=== PATIENT | female | born 1995 | race American Indian/Alaskan Native ===

== ENCOUNTER 2018-10-04 10:06 | Emergency (ER) | payer SELFPAY ==
[2018-10-04 10:11] VITALS: BP 108/66
[2018-10-04] MEDS ORDERED: NORCO PO ONE (11:03)
--- NOTE | 2018-10-04 12:42 | Emergency Department Report ---
ED ENT HPI - General Chief complaint: Sore Throat Stated complaint: SORE THROAT Time Seen by Provider: 10/04/18 10:44 Source: patient Mode of arrival: Ambulatory Limitations: No Limitations - History of Present Illness Initial comments: Patient is a 23-year-old Citizen Of [place] female who is presenting with 3 days of sore throat and fever. Patient also has had some mild backache as well as a cough. Patient states pain is 10 out of 10 with swallowing. He denies any neck stiffness. Worsens with: swallowing Associated Symptoms: fever, cough, pain with swallowing, sore throat. denies: toothache, tinnitus - Related Data Previous Rx's Medication Instructions Recorded Last Taken Type Azithromycin [Zithromax Z-WES] 250 mg PO DAILY #6 tablet 10/04/18 Unknown Rx predniSONE [Deltasone] 20 mg PO QDAY #5 tab 10/04/18 Unknown Rx traMADol [Ultram] 50 mg PO Q6HR PRN #12 tablet 10/04/18 Unknown Rx Allergies Allergy/AdvReac Type Severity Reaction Status Date / Time No Known Allergies Allergy Unverified 10/04/18 11:22 ED Dental HPI - General Chief complaint: Sore Throat Stated complaint: SORE THROAT Time Seen by Provider: 10/04/18 10:44 Source: patient Mode of arrival: Ambulatory Limitations: No Limitations - Related Data Previous Rx's Medication Instructions Recorded Last Taken Type Azithromycin [Zithromax Z-WES] 250 mg PO DAILY #6 tablet 10/04/18 Unknown Rx predniSONE [Deltasone] 20 mg PO QDAY #5 tab 10/04/18 Unknown Rx traMADol [Ultram] 50 mg PO Q6HR PRN #12 tablet 10/04/18 Unknown Rx Allergies Allergy/AdvReac Type Severity Reaction Status Date / Time No Known Allergies Allergy Unverified 10/04/18 11:22 ED Review of Systems ROS: Stated complaint: SORE THROAT Other details as noted in HPI Comment: All other systems reviewed and negative ED Past Medical Hx - Past Medical History Previous Medical History?: No - Surgical History Hx Appendectomy: No - Social History Smoking Status: Never Smoker Substance Use Type: None - Medications Home Medications: Home Medications Medication Instructions Recorded Confirmed Last Taken Type Azithromycin [Zithromax Z-WES] 250 mg PO DAILY #6 tablet 10/04/18 Unknown Rx predniSONE [Deltasone] 20 mg PO QDAY #5 tab 10/04/18 Unknown Rx traMADol [Ultram] 50 mg PO Q6HR PRN #12 tablet 10/04/18 Unknown Rx ED Physical Exam - General Limitations: No Limitations General appearance: alert, in no apparent distress - Head Head exam: Present: atraumatic, normocephalic - Eye Eye exam: Present: normal appearance - ENT ENT exam: Present: mucous membranes moist - Expanded ENT Exam Expanded Mouth exam: Present: tongue normal. Absent: tongue elevation Throat exam: Positive: tonsillar erythema, tonsillomegaly. Negative: tonsillar exudate - Neck Neck exam: Present: normal inspection, lymphadenopathy (ant cerv ) - Respiratory Respiratory exam: Present: normal lung sounds bilaterally. Absent: respiratory distress, wheezes, rales, rhonchi - Cardiovascular Cardiovascular Exam: Present: regular rate, normal rhythm. Absent: systolic murmur, diastolic murmur, rubs, gallop - GI/Abdominal GI/Abdominal exam: Present: soft, normal bowel sounds. Absent: distended, tenderness, guarding, rebound - Extremities Exam Extremities exam: Present: normal inspection - Back Exam Back exam: Present: normal inspection - Neurological Exam Neurological exam: Present: alert, oriented X3 - Psychiatric Psychiatric exam: Present: normal affect, normal mood - Skin Skin exam: Present: warm, dry, intact, normal color. Absent: rash ED Course Vital Signs 10/04/18 10/04/18 10:10 11:22 Temperature 97.8 F Pulse Rate 84 Respiratory 16 16 Rate Blood Pressure 108/66 O2 Sat by Pulse 100 Oximetry ED Medical Decision Making - Lab Data Lab Results 10/04/18 Range/Units 11:50 Group A Strep Rapid Negative (Negative) - Medical Decision Making Strep test was negative. A throat culture is been sent. Patient to be discrete home with medications for symptomatic relief. Critical care attestation.: If time is entered above; I have spent that time in minutes in the direct care of this critically ill patient, excluding procedure time. ED Disposition Clinical Impression: Acute tonsillitis Qualifiers: Pharyngitis/tonsillitis etiology: unspecified etiology Qualified Code(s): J03.90 - Acute tonsillitis, unspecified Disposition: - TO HOME OR SELFCARE Is pt being admited?: No Does the pt Need Aspirin: No Condition: Stable Instructions: Tonsillitis (ED) Referrals: NEERAJ ISAACS MD [Primary Care Provider] - 3-5 Days Time of Disposition: 12:41
== END 2018-10-04 12:54 | disposition home or self-care (01) ==
LOC: ED 10:06
DX: J03.90 Acute tonsillitis, unspecified (principal)
CPT/HCPCS: 87116; 87430

== ENCOUNTER 2018-11-23 14:50 | Emergency (ER) | payer OTHER ==
[2018-11-23 14:57] VITALS: BP 100/68
--- NOTE | 2018-11-23 14:58 | Event Note ---
ED Screening Note Date of service: 11/23/18 Time: 14:55 ED Screening Note: 23 y o presents with generalized body aches x 3 am today This initial assessment/diagnostic orders/clinical plan/treatment(s) is/are subject to change based on patients health status, clinical progression and re-assessment by fellow clinical providers in the ED. Further treatment and workup at subsequent clinical providers discretion. Patient/guardian urged not to elope from the ED as their condition may be serious if not clinically assessed and managed. Initial orders include: ua,upt, cbc,bmp
[2018-11-23 15:12] LABS: Hematocrit 43.9 % (30.3-42.9); Hemoglobin 15.2 gm/dl (10.1-14.3); Mean Corpuscular HGB Conc 35 % (30-34); Mean Corpuscular Volume 89 fl (79-97); Platelet Count 238 K/mm3 (140-440); Red Blood Count 4.91 M/mm3 (3.65-5.03)
[2018-11-23 15:32] LABS: BUN/Creatinine Ratio 15; Blood Urea Nitrogen 9 mg/dL (7-17); Calcium 9.4 mg/dL (8.4-10.2); Hemolysis Index 7
[2018-11-23 16:26] LABS: Bilirubin,Urine NEG (Negative); Blood,Urine NEG (Negative); Color,Urine Yellow (Yellow); Mucus,Urine FEW /HPF; Protein,Urine <15 mg/dL mg/dL (Negative); Urobilinogen,Urine < 2.0 mg/dL (<2.0)
[2018-11-23 16:30] LABS: HCG Qualitative,Urine Negative (Negative)
[2018-11-23 16:54] LABS: Total Cells Counted 100
[2018-11-23 16:55] LABS: Basophils % (Manual) 0 % (0.0-1.8); Eosinophils % (Manual) 0 % (0.0-4.3); Ovalocytes Few
--- NOTE | 2018-11-23 17:59 | Emergency Department Report ---
ED General Adult HPI - General Chief complaint: Fever Stated complaint: BODY PAIN Time Seen by Provider: 11/23/18 14:54 Source: patient Mode of arrival: Ambulatory Limitations: No Limitations - History of Present Illness Initial comments: 23 yo F pt states that she has bodyaches with a fever that started earlier today. -: This morning Location: head, back, abdomen Radiation: non-radiation Severity scale (0 -10): 10 Quality: constant Consistency: constant Improves with: none Worsens with: none Associated Symptoms: denies other symptoms Treatments Prior to Arrival: none - Related Data Previous Rx's Medication Instructions Recorded Last Taken Type Azithromycin [Zithromax Z-WES] 250 mg PO DAILY #6 tablet 10/04/18 Unknown Rx predniSONE [Deltasone] 20 mg PO QDAY #5 tab 10/04/18 Unknown Rx traMADol [Ultram] 50 mg PO Q6HR PRN #12 tablet 10/04/18 Unknown Rx Allergies Allergy/AdvReac Type Severity Reaction Status Date / Time No Known Allergies Allergy Verified 11/23/18 14:51 ED Review of Systems ROS: Stated complaint: BODY PAIN Other details as noted in HPI Constitutional: see HPI Eyes: denies: eye pain, eye discharge, vision change ENT: denies: ear pain, throat pain Respiratory: denies: cough, shortness of breath, wheezing Cardiovascular: denies: chest pain, palpitations Endocrine: no symptoms reported Gastrointestinal: denies: abdominal pain, nausea, diarrhea Genitourinary: denies: urgency, dysuria, discharge Musculoskeletal: denies: back pain, joint swelling, arthralgia Skin: denies: rash, lesions Neurological: denies: headache, weakness, paresthesias Psychiatric: denies: anxiety, depression Hematological/Lymphatic: denies: easy bleeding, easy bruising ED Past Medical Hx - Past Medical History Previous Medical History?: No - Surgical History Past Surgical History?: No Hx Appendectomy: No - Social History Smoking Status: Never Smoker Substance Use Type: None - Medications Home Medications: Home Medications Medication Instructions Recorded Confirmed Last Taken Type Azithromycin [Zithromax Z-WES] 250 mg PO DAILY #6 tablet 10/04/18 Unknown Rx predniSONE [Deltasone] 20 mg PO QDAY #5 tab 10/04/18 Unknown Rx traMADol [Ultram] 50 mg PO Q6HR PRN #12 tablet 10/04/18 Unknown Rx ED Physical Exam - General Limitations: No Limitations General appearance: alert, other (appears fatigued) - Head Head exam: Present: atraumatic, normocephalic - Eye Eye exam: Present: normal appearance - ENT ENT exam: Present: mucous membranes moist - Neck Neck exam: Present: normal inspection - Respiratory Respiratory exam: Present: normal lung sounds bilaterally. Absent: respiratory distress - Cardiovascular Cardiovascular Exam: Present: regular rate, normal rhythm. Absent: systolic murmur, diastolic murmur, rubs, gallop - GI/Abdominal GI/Abdominal exam: Present: soft, normal bowel sounds - Extremities Exam Extremities exam: Present: normal inspection - Back Exam Back exam: Present: normal inspection - Neurological Exam Neurological exam: Present: alert, oriented X3 - Psychiatric Psychiatric exam: Present: normal affect, normal mood - Skin Skin exam: Present: warm, dry, intact, normal color. Absent: rash ED Course Vital Signs 11/23/18 14:55 Temperature 99.1 F Pulse Rate 112 H Respiratory 18 Rate Blood Pressure 100/68 O2 Sat by Pulse 96 Oximetry ED Medical Decision Making - Lab Data Result diagrams: 11/23/18 15:01 11/23/18 15:01 - Medical Decision Making 23 yo F pt states that she has bodyaches with a fever that started earlier today. Labs were collected and a CBC revealed that her malaise and low grade fever were due to a viral cause. The patient was instructed to increase fluids, continue conservative treatment and f/u with her PCP. See ER if symptoms worsen or if new severe symptoms arise. Critical care attestation.: If time is entered above; I have spent that time in minutes in the direct care of this critically ill patient, excluding procedure time. ED Disposition Clinical Impression: Common cold virus, Malaise Fever Qualifiers: Fever type: unspecified Qualified Code(s): R50.9 - Fever, unspecified Disposition: DC- TO HOME OR SELFCARE Is pt being admited?: No Does the pt Need Aspirin: No Condition: Stable Instructions: Cold Symptoms (ED) Additional Instructions: The patient was instructed to increase fluids, continue conservative treatment and f/u with her PCP. See ER if symptoms worsen or if new severe symptoms arise. Referrals: NEERAJ ISAACS MD [Primary Care Provider] - 3-5 Days Forms: Work/School Release Form(ED) Time of Disposition: 18:05
== END 2018-11-23 18:18 | disposition home or self-care (01) ==
LOC: ED 14:50
DX: J00 Acute nasopharyngitis [common cold] (principal); R50.9 Fever, unspecified; R53.81 Other malaise; Z79.899 Other long term (current) drug therapy
CPT/HCPCS: 36415; 80048; 81001; 81025; 85007; 85025; 87116; 87400; 87430; 99283

== ENCOUNTER 2019-01-19 20:57 | Emergency (ER) | payer SELFPAY ==
[2019-01-19 21:31] VITALS: BP 99/61
--- NOTE | 2019-01-19 21:34 | Emergency Department Report ---
Blank Doc - Documentation Documentation: RUQ abdominal pain radiating to right shoulder for the last 3-4 days. no fever or chlls. no vomiting This initial assessment/diagnostic orders/clinical plan/treatment(s) is/are subject to change based on patient's health status, clinical progression and re- assessment by fellow clinical providers in the ED. Further treatment and workup at subsequent clinical providers discretion. Patient/guardians urged not to elope from the ED as their condition may be serious if not clinically assessed and managed. Initial orders include: labs and us
[2019-01-19 22:06] LABS: Basophils # (Auto) 0.1 K/mm3 (0.0-0.1); Basophils % (Auto) 0.9 % (0.0-1.8); Eosinophils # (Auto) 0.2 K/mm3 (0.0-0.4); Eosinophils % (Auto) 2.8 % (0.0-4.3); Hematocrit 38.9 % (30.3-42.9); Hemoglobin 13.2 gm/dl (10.1-14.3); Lymphocytes # (Auto) 1.8 K/mm3 (1.2-5.4); Lymphocytes % (Auto) 22.3 % (13.4-35.0); Mean Corpuscular HGB Conc 34 % (30-34); Mean Corpuscular Volume 90 fl (79-97); Monocytes # (Auto) 1.3 K/mm3 (0.0-0.8); Monocytes % (Auto) 15.6 % (0.0-7.3); Platelet Count 299 K/mm3 (140-440); Red Blood Count 4.35 M/mm3 (3.65-5.03); Red Cell Distribution Width 13.1 % (13.2-15.2)
[2019-01-19 22:18] LABS: Alanine Aminotransferase 8 units/L (7-56); BUN/Creatinine Ratio 18; Blood Urea Nitrogen 11 mg/dL (7-17); Calcium 8.8 mg/dL (8.4-10.2); Hemolysis Index 8
[2019-01-19 23:12] LABS: Bilirubin,Urine NEG (Negative); Blood,Urine NEG (Negative); Color,Urine Yellow (Yellow); Mucus,Urine 2+ /HPF; Urobilinogen,Urine < 2.0 mg/dL (<2.0)
[2019-01-19] MEDS ORDERED: NORCO 5/325 PO ONE (23:44)
--- NOTE | 2019-01-19 23:52 | Emergency Department Report ---
ED Abdominal Pain HPI - General Chief Complaint: Abdominal Pain Stated Complaint: ABDOMINAL PAIN AND SHOULDER PAIN Time Seen by Provider: 01/19/19 21:33 Source: patient Mode of arrival: Ambulatory Limitations: No Limitations - History of Present Illness Initial Comments: This is a 23-year-old -[place] female who presents to the emergency room with abdominal pain for 3 days. Patient states pain is radiating from abdomen to her right upper extremity. She reports pain is sharp stabbing pain that is 8 out of 10 on pain scale, and intermittent. Patient reports last menstrual period 12/27/2018. She denies nausea, vomiting, diarrhea, urinary frequency, hematuria, vaginal discharge, or recent injury. MD Complaint: abdominal pain Onset/Timin -: days(s) Location: RUQ Migration to: no migration Severity: moderate Severity scale (0 -10): 8 Quality: stabbing, sharp Consistency: constant Improves With: nothing Worsens With: nothing Associated Symptoms: denies other symptoms - Related Data LMP Date: 12/27/18 Previous Rx's Medication Instructions Recorded Last Taken Type Azithromycin [Zithromax Z-WES] 250 mg PO DAILY #6 tablet 10/04/18 Unknown Rx predniSONE [Deltasone] 20 mg PO QDAY #5 tab 10/04/18 Unknown Rx traMADol [Ultram] 50 mg PO Q6HR PRN #12 tablet 10/04/18 Unknown Rx Phenazopyridine [Pyridium] 200 mg PO TID #6 tab 01/20/19 Unknown Rx Sulfamethoxazole/Trimethoprim 1 each PO BID #6 tablet 01/20/19 Unknown Rx [Bactrim DS TAB] Allergies Allergy/AdvReac Type Severity Reaction Status Date / Time No Known Allergies Allergy Verified 11/23/18 14:51 ED Review of Systems ROS: Stated complaint: ABDOMINAL PAIN AND SHOULDER PAIN Other details as noted in HPI Constitutional: denies: chills, fever Respiratory: denies: cough, shortness of breath, wheezing Cardiovascular: denies: chest pain, palpitations Gastrointestinal: abdominal pain. denies: nausea, diarrhea Genitourinary: denies: urgency, dysuria, discharge Musculoskeletal: denies: back pain, joint swelling, arthralgia Skin: denies: rash, lesions Neurological: denies: headache, weakness, paresthesias Psychiatric: denies: anxiety, depression ED Past Medical Hx - Past Medical History Previous Medical History?: No - Surgical History Past Surgical History?: No Hx Appendectomy: No - Social History Smoking Status: Never Smoker Substance Use Type: None - Medications Home Medications: Home Medications Medication Instructions Recorded Confirmed Last Taken Type Azithromycin [Zithromax Z-WES] 250 mg PO DAILY #6 tablet 10/04/18 Unknown Rx predniSONE [Deltasone] 20 mg PO QDAY #5 tab 10/04/18 Unknown Rx traMADol [Ultram] 50 mg PO Q6HR PRN #12 tablet 10/04/18 Unknown Rx Phenazopyridine [Pyridium] 200 mg PO TID #6 tab 01/20/19 Unknown Rx Sulfamethoxazole/Trimethoprim 1 each PO BID #6 tablet 01/20/19 Unknown Rx [Bactrim DS TAB] ED Physical Exam - General Limitations: No Limitations General appearance: alert, in no apparent distress - Respiratory Respiratory exam: Present: normal lung sounds bilaterally. Absent: respiratory distress - Cardiovascular Cardiovascular Exam: Present: regular rate, normal rhythm. Absent: systolic murmur, diastolic murmur, rubs, gallop - GI/Abdominal GI/Abdominal exam: Present: soft, tenderness (RUQ), normal bowel sounds. Absent: distended, guarding, rebound, rigid, organomegaly - Back Exam Back exam: Absent: CVA tenderness (R), CVA tenderness (L) - Neurological Exam Neurological exam: Present: alert, oriented X3 - Psychiatric Psychiatric exam: Present: normal affect, normal mood - Skin Skin exam: Present: warm, dry, intact, normal color. Absent: rash ED Course Vital Signs 01/19/19 21:27 Temperature 98.4 F Pulse Rate 83 Respiratory 18 Rate Blood Pressure 99/61 O2 Sat by Pulse 100 Oximetry ED Medical Decision Making - Lab Data Result diagrams: 01/19/19 21:34 01/19/19 21:34 Lab Results 01/19/19 01/19/19 01/19/19 Range/Units 21:34 21:34 21:34 WBC 8.3 (4.5-11.0) K/mm3 RBC 4.35 (3.65-5.03) M/mm3 Hgb 13.2 (10.1-14.3) gm/dl Hct 38.9 (30.3-42.9) % MCV 90 (79-97) fl MCH 30 (28-32) pg MCHC 34 (30-34) % RDW 13.1 L (13.2-15.2) % Plt Count 299 (140-440) K/mm3 Lymph % (Auto) 22.3 (13.4-35.0) % [place] % (Auto) 15.6 H (0.0-7.3) % Eos % (Auto) 2.8 (0.0-4.3) % Baso % (Auto) 0.9 (0.0-1.8) % Lymph # 1.8 (1.2-5.4) K/mm3 [place] # 1.3 H (0.0-0.8) K/mm3 Eos # 0.2 (0.0-0.4) K/mm3 Baso # 0.1 (0.0-0.1) K/mm3 Seg Neutrophils % 58.4 (40.0-70.0) % Seg Neutrophils # 4.8 (1.8-7.7) K/mm3 Sodium 138 (137-145) mmol/L Potassium 3.8 (3.6-5.0) mmol/L Chloride 104.5 (98-107) mmol/L Carbon Dioxide 21 L (22-30) mmol/L Anion Gap 16 mmol/L BUN 11 (7-17) mg/dL Creatinine 0.6 L (0.7-1.2) mg/dL Estimated GFR > 60 ml/min BUN/Creatinine Ratio 18 % Glucose 87 (65-100) mg/dL Calcium 8.8 (8.4-10.2) mg/dL Total Bilirubin 0.30 (0.1-1.2) mg/dL AST 12 (5-40) units/L ALT 8 (7-56) units/L Alkaline Phosphatase 53 (35-129) units/L Total Protein 7.7 (6.3-8.2) g/dL Albumin 4.0 (3.9-5) g/dL Albumin/Globulin Ratio 1.1 % Lipase 22 (13-60) units/L HCG, Qual Negative (Negative) Urine Color (Yellow) Urine Turbidity (Clear) Urine pH (5.0-7.0) Ur Specific [place] (1.003-1.030) Urine Protein (Negative) mg/dL Urine Glucose (UA) (Negative) mg/dL Urine Ketones (Negative) mg/dL Urine Blood (Negative) Urine Nitrite (Negative) Urine Bilirubin (Negative) Urine Urobilinogen (<2.0) mg/dL Ur Leukocyte Esterase (Negative) Urine WBC (Auto) (0.0-6.0) /HPF Urine RBC (Auto) (0.0-6.0) /HPF U Epithel Cells (Auto) (0-13.0) /HPF Urine Mucus /HPF 01/19/19 Range/Units 22:04 WBC (4.5-11.0) K/mm3 RBC (3.65-5.03) M/mm3 Hgb (10.1-14.3) gm/dl Hct (30.3-42.9) % MCV (79-97) fl MCH (28-32) pg MCHC (30-34) % RDW (13.2-15.2) % Plt Count (140-440) K/mm3 Lymph % (Auto) (13.4-35.0) % [place] % (Auto) (0.0-7.3) % Eos % (Auto) (0.0-4.3) % Baso % (Auto) (0.0-1.8) % Lymph # (1.2-5.4) K/mm3 [place] # (0.0-0.8) K/mm3 Eos # (0.0-0.4) K/mm3 Baso # (0.0-0.1) K/mm3 Seg Neutrophils % (40.0-70.0) % Seg Neutrophils # (1.8-7.7) K/mm3 Sodium (137-145) mmol/L Potassium (3.6-5.0) mmol/L Chloride (98-107) mmol/L Carbon Dioxide (22-30) mmol/L Anion Gap mmol/L BUN (7-17) mg/dL Creatinine (0.7-1.2) mg/dL Estimated GFR ml/min BUN/Creatinine Ratio % Glucose (65-100) mg/dL Calcium (8.4-10.2) mg/dL Total Bilirubin (0.1-1.2) mg/dL AST (5-40) units/L ALT (7-56) units/L Alkaline Phosphatase (35-129) units/L Total Protein (6.3-8.2) g/dL Albumin (3.9-5) g/dL Albumin/Globulin Ratio % Lipase (13-60) units/L HCG, Qual (Negative) Urine Color Yellow (Yellow) Urine Turbidity Clear (Clear) Urine pH 7.0 (5.0-7.0) Ur Specific [place] 1.027 (1.003-1.030) Urine Protein 30 mg/dl (Negative) mg/dL Urine Glucose (UA) Neg (Negative) mg/dL Urine Ketones Neg (Negative) mg/dL Urine Blood Neg (Negative) Urine Nitrite Neg (Negative) Urine Bilirubin Neg (Negative) Urine Urobilinogen < 2.0 (<2.0) mg/dL Ur Leukocyte Esterase Mod (Negative) Urine WBC (Auto) 11.0 H (0.0-6.0) /HPF Urine RBC (Auto) 8.0 (0.0-6.0) /HPF U Epithel Cells (Auto) 3.0 (0-13.0) /HPF Urine Mucus 2+ /HPF - Radiology Data Radiology results: report reviewed ULTRASOUND ABDOMEN, LIMITED (RIGHT UPPER QUADRANT) INDICATION: ruq pain COMPARISON: None available. LIMITATIONS: None FINDINGS: Pancreas: No significant abnormalities are noted of the visualized portions. Liver: Normal. Gallbladder: Partially contracted. No definite calculi or wall thickening are seen. Bile ducts: Normal. Common Bile Duct measures 1 mm. Right Kidney: Visualized portions show no abnormality. Free fluid: None. Additional Findings: None. IMPRESSION: No acute abnormalities are seen. - Medical Decision Making Patient was examined by me. Patient is nontoxic appearing and stable. Vitals are normal. Obtained labs and limited ultrasound of right upper quadrant. Urinalysis slight elevation of WBCs Leukos Estrace. Patient will be treated for urinary tract infection. Given analgesics while in the ER. Ultrasound of right upper quadrant no acute findings. Patient informed of results. Start Bactrim and Pyridium. Follow up with PCP or return to the ER with worsening symptoms. Patient discharged home in stable condition. Critical care attestation.: If time is entered above; I have spent that time in minutes in the direct care of this critically ill patient, excluding procedure time. ED Disposition Clinical Impression: Right upper quadrant abdominal pain Acute cystitis Qualifiers: Hematuria presence: without hematuria Qualified Code(s): N30.00 - Acute cystitis without hematuria Disposition: TO HOME OR SELFCARE Is pt being admited?: No Condition: Stable Instructions: Abdominal Pain (ED), Urinary Tract Infection in Women (ED) Additional Instructions: Increase fluid intake to 1L-2L. Prescriptions: Sulfamethoxazole/Trimethoprim [Bactrim DS TAB] 1 each PO BID #6 tablet Phenazopyridine [Pyridium] 200 mg PO TID #6 tab Referrals[facility] [Outside] - 3-5 Days [facility] [Outside] - 3-5 Days [facility] [Outside] - 3-5 Days Forms: Work/School Release Form(ED) Time of Disposition: 02:17
--- NOTE | 2019-01-20 01:21 | Ultrasound Report ---
ULTRASOUND ABDOMEN, LIMITED (RIGHT UPPER QUADRANT) INDICATION: ruq pain COMPARISON: None available. LIMITATIONS: None FINDINGS: Pancreas: No significant abnormalities are noted of the visualized portions. Liver: Normal. Gallbladder: Partially contracted. No definite calculi or wall thickening are seen. Bile ducts: Normal. Common Bile Duct measures 1 mm. Right Kidney: Visualized portions show no abnormality. Free fluid: None. Additional Findings: None. IMPRESSION: No acute abnormalities are seen. Signer Name: Leander Chance MD Signed: 01/20/2019 1:16 AM Workstation Name: [id number]
== END 2019-01-20 02:30 | disposition home or self-care (01) ==
LOC: ED 20:57
DX: N30.00 Acute cystitis without hematuria (principal); Z79.899 Other long term (current) drug therapy
CPT/HCPCS: 36415; 76705; 80053; 81001; 83690; 84703; 85025; 87086; 99284

== ENCOUNTER 2020-08-08 09:01 | Emergency (ER) | payer SELFPAY ==
[2020-08-08 10:03] VITALS: BP 100/64
== END 2020-08-08 11:16 | disposition left against medical advice (07) ==
LOC: ED 09:01
DX: R10.31 Right lower quadrant pain (principal); Z53.21 Procedure and treatment not carried out due to patient leaving prior to being seen by health care provider

== ENCOUNTER 2021-02-27 10:34 | Emergency (ER) | payer SELFPAY ==
[2021-02-27 10:40] VITALS: BP 107/78
--- NOTE | 2021-02-27 12:52 | Emergency Department Report ---
ED Back Pain/Injury HPI - General Chief Complaint: Back Pain/Injury Stated Complaint: BACK PAIN Time Seen by Provider: 02/27/21 12:41 Source: patient Limitations: No Limitations - History of Present Illness Initial Comments: 26-year-old -[place] female presents to the emergency room complaining of back pain located on her right lower back for the last 2 days. 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 Patient denies any direct trauma. Denies any hematuria no urinary incontinent no fevers no trauma not a IV drug user no unintentional weight loss. States she has not taken anything for back pain. She does report that hot baths with Epson salt has helped with her pain. MD Complaint: back pain Similar Symptoms Previously: No Severity scale (0 -10): 7 Quality: aching Consistency: constant Improves With: other (Hot baths) Worsens With: other (Bending) Context: bending Associated Symptoms: denies other symptoms. denies: numbness, difficulty walking, difficulty urinating, fever/chills, constipation, nausea/vomiting, shortness of breath - Related Data Previous Rx's Medication Instructions Recorded Last Taken Type Azithromycin [Zithromax Z-WES] 250 mg PO DAILY #6 tablet 10/04/18 Unknown Rx predniSONE [Deltasone] 20 mg PO QDAY #5 tab 10/04/18 Unknown Rx traMADoL [Ultram] 50 mg PO Q6HR PRN #12 tablet 10/04/18 Unknown Rx Phenazopyridine [Pyridium] 200 mg PO TID #6 tab 01/20/19 Unknown Rx Sulfamethoxazole/Trimethoprim 1 each PO BID #6 tablet 01/20/19 Unknown Rx [Bactrim DS TAB] Ibuprofen [Motrin 600 MG tab] 600 mg PO Q8H PRN #30 tablet 02/27/21 Unknown Rx Allergies Allergy/AdvReac Type Severity Reaction Status Date / Time No Known Allergies Allergy Verified 02/27/21 10:37 ED Review of Systems ROS: Stated complaint: BACK PAIN Other details as noted in HPI Comment: All other systems reviewed and negative ED Past Medical Hx - Past Medical History Previous Medical History?: No - Surgical History Past Surgical History?: No Hx Appendectomy: No - Social History Smoking Status: Never Smoker Substance Use Type: None - Medications Home Medications: Home Medications Medication Instructions Recorded Confirmed Last Taken Type Azithromycin [Zithromax Z-WES] 250 mg PO DAILY #6 tablet 10/04/18 Unknown Rx predniSONE [Deltasone] 20 mg PO QDAY #5 tab 10/04/18 Unknown Rx traMADoL [Ultram] 50 mg PO Q6HR PRN #12 tablet 10/04/18 Unknown Rx Phenazopyridine [Pyridium] 200 mg PO TID #6 tab 01/20/19 Unknown Rx Sulfamethoxazole/Trimethoprim 1 each PO BID #6 tablet 01/20/19 Unknown Rx [Bactrim DS TAB] Ibuprofen [Motrin 600 MG tab] 600 mg PO Q8H PRN #30 tablet 02/27/21 Unknown Rx ED Physical Exam - General Limitations: No Limitations General appearance: alert, in no apparent distress - Head Head exam: Present: atraumatic, normocephalic - Eye Eye exam: Present: normal appearance - ENT ENT exam: Present: mucous membranes moist - Neck Neck exam: Present: normal inspection - Respiratory Respiratory exam: Present: normal lung sounds bilaterally. Absent: respiratory distress - Cardiovascular Cardiovascular Exam: Present: regular rate, normal rhythm. Absent: systolic murmur, diastolic murmur, rubs, gallop - GI/Abdominal GI/Abdominal exam: Present: soft, normal bowel sounds - Extremities Exam Extremities exam: Present: normal inspection - Back Exam Back exam: Present: normal inspection - Expanded Back Exam Expanded Back exam: Positive Straight Leg Raise: Right, Negative Straight Leg Raising: Right - Neurological Exam Neurological exam: Present: alert, oriented X3, normal gait - Psychiatric Psychiatric exam: Present: normal affect, normal mood - Skin Skin exam: Present: warm, dry, intact, normal color. Absent: rash ED Course Vital Signs 02/27/21 10:39 Temperature 98.3 F Pulse Rate 89 Respiratory 20 Rate Blood Pressure 107/78 [Right] O2 Sat by Pulse 100 Oximetry ED Medical Decision Making - Medical Decision Making 26-year-old -[place] female presents to the emergency room complaining of back pain located on her right lower back for the last 2 days. 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 Patient denies any direct trauma. Denies any hematuria no urinary incontinent no fevers no trauma not a IV drug user no unintentional weight loss. States she has not taken anything for back pain. She does report that hot baths with Epson salt has helped with her pain. Patient was offered Toradol injection she declined. Patient states she will take something for pain. The patient presents with acute back pain. The patient is now resting comfortably and feels better, is alert talkative interactive and in no distress. Repeat examination is unremarkable and benign. The patient is neurologically intact and is ambulatory in the ED. Patient has no fever, no bowel or bladder incontinence, no saddle anesthesia, and is otherwise alert and well-appearing. The history physical examination and diagnostic( if any) do not suggest the presence of acute spinal epidural abscess, acute spinal epidural bleed, cauda equina syndrome, abdominal aortic aneurysm, aortic dissection or other process requiring further testing, treatment or consultation in the emergency department. The vital signs have been stable. The patient's condition is stable and appropriate for discharge. The patient will pursue further outpatient evaluation with a primary care physician or other designated or consulting physician as indicated in the discharge instructions. Critical care attestation.: If time is entered above; I have spent that time in minutes in the direct care of this critically ill patient, excluding procedure time. ED Disposition Clinical Impression: Acute back pain Disposition: 01 HOME / SELF CARE / HOMELESS Is pt being admited?: No Does the pt Need Aspirin: No Condition: Stable Instructions: Acute Back Pain, Adult Additional Instructions: Try taking pain medication as prescribed. Continue with warm heat to your back. Incorporate stretches. Follow-up with your primary care provider. Most important is increase your water intake. Prescriptions: Ibuprofen [Motrin 600 MG tab] 600 mg PO Q8H PRN #30 tablet PRN Reason: Pain Referrals: PRIMARY CAREMD [Primary Care Provider] - 3-5 Days [facility] [Provider Group] - 3-5 Days Forms: Work/School Release Form(ED), Accompanied Note Time of Disposition: 12:51
== END 2021-02-27 13:10 | disposition home or self-care (01) ==
LOC: ED 10:34
DX: M54.50 Low back pain, unspecified (principal)
CPT/HCPCS: 99281